=== PATIENT | male | born 1990 | race Caucasian/White ===

== ENCOUNTER 2017-12-11 19:07 | Emergency (ER) | payer BC ==
[~2017-12-11] VITALS: Ht 193 cm; Wt 140.6 kg
[2017-12-11] MEDS ORDERED: CEPH-264 PO (20:08)
--- NOTE | 2017-12-11 20:11 | PHYS DOC ---
Adult General Chief Complaint Chief Complaint dog bite HPI HPI 27 years old gentleman [place] when a [place] murphy attacked him and bit him on the right side of his flank, no active bleeding minimal puncture wounds noticed police was informed Review of Systems Review of Systems Constitutional: Denies fever or chills [] Eyes: Denies change in visual acuity, redness, or eye pain [] HENT: Denies nasal congestion or sore throat [] Respiratory: Denies cough or shortness of breath [] Cardiovascular: No additional information not addressed in HPI [] GI: Denies abdominal pain, nausea, vomiting, bloody stools or diarrhea [] : Denies dysuria or hematuria [] Musculoskeletal: Denies back pain or joint pain [] Integument: Denies rash or skin lesions [] Neurologic: Denies headache, focal weakness or sensory changes [] Endocrine: Denies polyuria or polydipsia [] All other systems were reviewed and found to be within normal limits, except as documented in this note. Physical Exam Physical Exam Constitutional: Well developed, well nourished, no acute distress, non-toxic appearance. [] HENT: Normocephalic, atraumatic, bilateral external ears normal, oropharynx moist, no oral exudates, nose normal. [] Eyes: PERRLA, EOMI, conjunctiva normal, no discharge. [] Neck: Normal range of motion, no tenderness, supple, no stridor. [] Cardiovascular:Heart rate regular rhythm, no murmur [] Lungs & Thorax: Bilateral breath sounds clear to auscultation [] Abdomen: Bowel sounds normal, soft, no tenderness, no masses, no pulsatile masses. [] Skin: Puncture wounds on the right flank] Back: No tenderness, no CVA tenderness. [] Extremities: No tenderness, no cyanosis, no clubbing, ROM intact, no edema. [] Neurologic: Alert and oriented X 3, normal motor function, normal sensory function, no focal deficits noted. [] Psychologic: Affect normal, judgement normal, mood normal. [] EKG EKG [] Radiology/Procedures Radiology/Procedures [] Course & Med Decision Making Course & Med Decision Making Pertinent Labs and Imaging studies reviewed. (See chart for details) [] Final Impression Final Impression I had a very lengthy discussion with the patient about in the risk of rabies he declined rabies series he understood the risk and benefits[] Problems: (1) Dog bite Qualifiers: Qualified Codes: W54.0XXA - Bitten by dog, initial encounter Dragl[facility]pez Disclaimer Jude Disclaimer This electronic medical record was generated, in whole or in part, using a voice recognition dictation system. NEVAEH TRIVEDI MD Dec 11, 2017 20:11
[2017-12-11 20:13] VITALS: BP 144/88
[2017-12-11] MEDS ORDERED: TETANUS AND DIPHTHERIA TOX/PF 0.5 ML VIAL. VAX IM ONE (20:45)
== END 2017-12-11 20:50 | disposition home or self-care (01) ==
LOC: ER 19:07
DX: S31.139A Puncture wound of abdominal wall without foreign body, unspecified quadrant without penetration into peritoneal cavity, initial encounter (principal); W54.0XXA Bitten by dog, initial encounter; Y93.89 Activity, other specified; Y92.39 Other specified sports and athletic area as the place of occurrence of the external cause; Y99.8 Other external cause status
CPT/HCPCS: 90471; 90714; 99283-25